=== PATIENT | male | born 1955 | race Caucasian/White ===

== ENCOUNTER 2024-12-16 13:48 | Outpatient (CLI) | payer MEDICARE, SELFPAY ==
--- NOTE | ~2024-12-16 | PE_ITS ---
EXAMINATION: PET_PETPSMAST_PT DATE: 12/16/2024 15:56 INDICATION: Prostate cancer. TECHNIQUE: 4.821 mCi of Ga-68 gozetotide was administered intravenously. Low dose computed tomography (CT) images were acquired from the base of the brain to the proximal thighs for attenuation correcti on and anatomic localization. Automated exposure control was employed. Dose-length product (DLP) was 1175 mGy-cm. Positron emission tomography (PET) images were acquired in the same distribution. COMPARISON: None FINDINGS: Head/neck: There is a 2.5 x 1.4 cm left subclavicular node with increased activity. Chest: The lungs demonstrate mild atelectasis. Calcified left lung nodules and calcified left hilar l ymph nodes are consistent with old granulomatous disease. No pleural effusion. Cardiomegaly is noted. There are coronary artery calcifications. No pericardial effusion. There is a mildly enlarged paraes ophageal node with increased activity. Abdomen/pelvis/proximal thighs: The liver is normal. There is a gallstone in the gallbladder, which i s contracted. Calcifications in the spleen are consistent with old granulomatous disease. The pancrea s and adrenal glands are normal. There are cysts in the kidneys measuring up to 4.0 cm on the left. T here is a 1.6 cm mass of right kidney. There are 2 stones in right kidney with the larger measuring 8 mm. The prostate is mildly enlarged with maximum SUV of 3.2. There is diffuse bladder wall thickenin g, likely secondary to chronic outlet obstruction. There is diverticulosis of the colon without evide nce of diverticulitis. There are changes of appendectomy. There is increased activity in left interna l and external iliac nodes, bilateral common iliac nodes, and aortocaval, left para-aortic, and right retrocrural nodes, some of which are enlarged. There is no osseous metastatic disease. IMPRESSION: 1. Lymphadenopathy in the pelvis, abdomen, and chest including left supraclavicular lymphadenopathy w ith increased activity, consistent with metastatic disease. 2. 1.6 cm right kidney mass, which may be a hemorrhagic cyst or renal cell carcinoma. Abdomen CT with out and with contrast is recommended. Reviewed, dictated and finalized at location A. CTOR EDUCATION IMPRESSION: 1. Lymphadenopathy in the pelvis, abdomen, and chest including left supraclavic ular lymphadenopathy with increased activity, consistent with metastatic diseas e. 2. 1.6 cm right kidney mass, which may be a hemorrhagic cyst or renal cell carc inoma. Abdomen CT without and with contrast is recommended.
--- OUTSIDE RECORDS SUMMARY | 2024-12-16 13:53 | XMS_ITS | Encounter Summary ---
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 Gender Identity Not on file Sexual Orientation Not on file documented as of this encounter Plan of Treatment Not on file documented as of this encounter Visit Diagnoses Not on filedocumented in this encounter Additional Health Concerns Infection Onset Date Last Indicated Resolved Time COVID-19 Confirmed 08/08/2020 08/08/2020 0 12:35 AM COMPOUNDER COVID-19 Rule Out 08/08/2020 08/08/2020 08/08/2020 7:41 PM CDT COVID-19 Rule Out 07/24/2023 07/24/2023 07/24/2023 7:22 PM CDT documented as of this encounter Care Teams Truck Caterer Relationship Specialty Start Date End Date None, Provider, PCP - General 07/05/20 03/18/22 Smith Maldonado MD PCP - General FAMILY PRACTICE 03/19/22 documented as of this encounter
--- OUTSIDE RECORDS SUMMARY | 2024-12-16 13:53 | XMS_ITS | Encounter Summary ---
Author Organization [facility] Address [facility] [place] [address] Care Team Providers Care Director Risk Name Role Phone Smith Maldonado MD Primary Care Provider Encounter Details Date Type Department Care Team (Late st Contact Info) Description 08/04/2023 Hospital Follow-up Call [facility] [address] [place] [address] Tamica Balbuena RN Social History Tobacco Use Types Packs/Day Years Used Date Smoking Tobacco: Never Smokeless Tobacco: Former Alcohol Use Standard Drinks/Week Comments Yes 0 (1 standard drink = 0.6 oz pur e alcohol) occassional Humiliation, Afraid, Rape, and Kick questionnair e Answer Date Recorded Within the last year, have y ou been afraid of your partner or ex-partner? No 07/25/2023 Within the last year, have y ou been humiliated or emotionally abused in other ways by your partner or ex-partner? No Within the last year, have y ou been kicked, hit, slapped, or otherwise physically hurt by your partner or ex-partner? No 07/25/2023 Within the last year, have y ou been raped or forced to have any kind of sexual activity by your partner or ex-partner? No 07/25/2023 Overall Financial Resource Strain (CARDIA) Answe r Date Recorded How hard is it for you to pa y for the very basics like food, housing, medical care, and heating? Not hard at all 07/25/2023 Hunger Vital Sign Answer Date Recorded Within the past 12 months, y ou worried that your food would run out before you got the money to buy more. Never true 07/25/20 23 Within the past 12 months, t he food you bought just didn't last and you didn't have money to get more. Never true 07/25/2023 PRAPARE - Transportation Answer Date Re corded In the past 12 months, has l ack of transportation kept you from medical appointments or from getting medications? No 07/05 In the past 12 months, has l ack of transportation kept you from meetings, work, or from getting things needed for daily living? No 07/25/2023 Housing Stability Vital Sign Answer Danny e Recorded In the last 12 months, was t here a time when you were not able to pay the mortgage or rent on time? No 07/25/2023 In the last 12 months, how many places have you lived? 1 07/25/2023 In the last 12 months, was t here a time when you did not have a steady place to sleep or slept in a long term (including now)? 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 Answer Date of Assessment Author Status No 07/25/2023 1:33 AM Bing Padgett RN Active * Do you have serious difficulty walking or climbing stairs? Answer Date of Assessment Author Status No 07/25/2023 1:33 AM Bing Padgett RN Active * Do you have difficulty dressing or bathing? Answer Date of Assessment Author Status No 07/25/2023 1:33 AM Bing Padgett RN Active * Because of a physical, mental, or emotional condition, do you have difficulty doing errands alone such as visiting a doctor's office or shopping? Answer Date of Assessment Author Status No 07/25/2023 1:33 AM Bing Padgett RN Active documented as of this encounter Mental Status * Because of a physical, mental, or emotional condition, do you have serious difficulty concentrating, remembering, or making decisions? Answer Entry Date Author Status No 07/25/2023 1:33 AM Bing Padgett RN Active documented in this encounter Plan of Treatment Not on file documented as of this encounter Goals Goal Patient Goal Type Associated Problems Recent Progress Patient-Stated? Author Patient will return to prior living situation and remain independent in ADLs upon discharge from hospital Lifestyle No Brittany Cheng RN documented as of this encounter Visit Diagnoses Not on filedocumented in this encounter Care Teams Director Risk Relationship Specialty Start Date End Date Smith Maldonado MD PCP - General FAMILY PRACTICE 03/19/22 documented as of this encounter
--- OUTSIDE RECORDS SUMMARY | 2024-12-16 13:53 | XMS_ITS | Clinical Summary ---
Author Organization [facility] Address [address] [place] [id number] Care Team Providers Care Scalp Treatment Specialist Name Role Phone Smith Maldonado MD Primary Care Provider [phone] Allergies Active Allergy Reactions Criticality Noted Date Comments Penicillins Unknown 08/02/2020 Medications aspirin 81 MG chewable tablet Chew 1 tablet (81 mg total) by mouth daily. Active multi vitamin/minerals tablet Take 1 tablet by mouth daily. Active finasteride (PROSCAR) 5 MG tablet Take 1 tablet (5 mg total) by mouth daily. Active carvedilol (COREG) 6.25 MG tablet Take 1 tablet (6.25 mg total) by mouth 2 (two) times daily. 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 CAD (coronary artery disease) 08/18/2023 NSTEMI (non-ST elevated myoc ardial infarction) ([facility]) 07/25/2023 Assessment & Plan (07/31/2023 1:07 PM CDT): Severe complex coronary artery disease with total occlusion of ostial LAD, subtotal occlusion of ostial circumflex coronary. Has moderate stenosis at the origin of PL branch of right coronary. Patient is postoperative day 1 with BROOKS to LAD, SVG to diagonal, SVG to marginal and SVG to PDA. Making excellent recovery. Continue postoperative care. Back on aspirin and beta-mitzi. Since she had NSTEMI, would have gone on combination of aspirin Plavix but he needs anticoagulation for PAF therefore plan on going on aspirin and Eliquis. PAF (paroxysmal atrial fibrillation) ([facility]) 07/25/2023 Assessment & Plan (07/31/2023 1:08 PM CDT): Sinus rhythm now. Patient now s/p Maze procedure and ligation of left atrial appendage. Plan to keep him on anticoagulation for [address] to start him on Eliquis at the time of discharge. Continue aspirin. Encounters Date Type Department Care Team Description 10/15/2024 8:38 AM DISBURSEMENT CLERK - 10/15/2024 11:59 PM [facility] [place] [address] Enma Keller III, MD Discharge Disposition: Home or Self Care (Routine Discharge) 10/15/2024 [place] [address] Enma Keller III, MD 10/15/2024 Travel from Last 3 Months Family History Medical History Relation Comments Heart Disease Father Heart Disease Mother Relation Status Comments Father Mother Social History Tobacco Use Types Packs/Day Years Used Date Smoking Tobacco: Never Smokeless Tobacco: Former Tobacco Cessation:Counseling Given: Not Answered Alcohol Use Standard Drinks/Week Comments Yes 3.3 (1 standard drink = 0.6 oz p ure alcohol) occassional Humiliation, Afraid, Rape, and Kick [...] place to sleep or slept in a long-term (including now)? 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 DISBURSEMENT CLERK Gender Identity Not on file Sexual Orientation Not on file Last Filed Vital Signs Vital Sign Reading Time Taken Comments Blood Pressure 184/97 06/03/2024 1:20 PM CDT Pulse 70 06/03/2024 1:20 PM CDT Temperature 36.9 C (98.4 F) 06/03/2024 1:20 PM CDT Respiratory Rate 16 06/03/2024 1:20 PM CDT Oxygen Saturation 99% 06/03/2024 1:20 PM CDT Inhaled Oxygen Concentration - - Weight 85.3 kg (188 lb) 06/03/2024 1:20 PM CDT Height 175.3 cm (5' 9 ) 06/03/2024 1:20 PM CDT Body Mass Index 27.76 06/03/2024 1:20 PM CDT Plan of Treatment Health Maintenance Due Date Last Done Comments ASCVD Statin 1955 Pneumococcal Vaccine: 65+ Years (1 of 2 - PCV) 1959 Hepatitis C 1971 DTaP, Tdap and Td Vaccines ( 1 - Tdap) 1972 RSV Immunization or 60+ Years (1 - Risk 60-74 years 1-dose series) 2013 Zoster Vaccines (2 of 3) 11/02/2013 09/07/2013 Annual Medicare Wellness Visit 2018 COVID-19 Vaccine (1 - 2023-2 5 season) 2024 ASCVD LDL 07/26/2024 07/26/2023, 07/25/2023 Influenza Adult (#1) 2024 09/16/2019 Colorectal Cancer Screening Colonoscopy (10 Years) 10/06/2030 10/06/2020, 10/06/2020 Meningococcal B Vaccine Aged Out No l onger eligible based on patient's age to complete this topic Meningococcal Vaccine Aged Out No krystyna bhavesh eligible based on patient's age to complete this topic RSV Immunizations Under 20 Months Aged Out No longer eligible b ased on patient's age to complete this topic Goals Goal Patient Goal Type Associated Problems Recent Progress Patient-Stated? Author Patient will return to prior living situation and remain independent in ADLs upon discharge from hospital Lifestyle No Brittany Cheng ruby developer Procedure Name Priority Date/Time Associated Diagnosis Comments PROSTATE SPECIFIC ANTIGEN,TOTAL Routine 10/15/2024 8:45 AM DISBURSEMENT CLERK Elevated prostate specific antigen (PSA) LIPID PANEL Routine 07/26/2023 12:09 PM CDT COLONOSCOPY 10/06/2020 9:44 AM DISBURSEMENT CLERK from Last 3 Months or Most Recently Relevant to Health Maintenance Results * (ABNORMAL) PROSTATE SPECIFIC ANTIGEN, DIAG (10/15/2024 8:45 AM DISBURSEMENT CLERK) PSA 13.89(H) <4.00 NG/ML 10/15/2024 9:29 AM DISBURSEMENT CLERK [facility] Comment: ASSAY PERFORMED BY ENZYME IMMUNOASSAY METHODOLOGY USING SIEMENS DIMENSION REAGENT. PATIENT RESULTS DETERMINED BY ASSAYS FROM DIFFERENT MANUFACTURERS AND/OR BY DIFFERENT METHODS MAY NOT BE COMPARABLE. 10/15/2024 8:45 AM DISBURSEMENT CLERK Enma Keller III, MD LABORATORY Final Re sult [facility] [address] [place] [address], * LIPID PANEL (07/26/2023 12:09 PM CDT) CHOLESTEROL 128 MG/DL 07/26/2023 12:43 PM CDT [facility] Comment:DESIRABLE: <200 TRIGLYCERIDES 68 MG/DL 07/26/2023 12:43 PM CDT [facility] Comment:<150 NORMAL HDL 60 >39 MG/DL 07/26/2023 12:43 PM CDT [facility] LDL (CALCULATED) 54 MG/DL 07/26/20 12:43 PM CDT [facility] Comment:<100 OPTIMAL VLDL CALCULATION 14 MG/DL 07/26/20 12:43 PM CDT [facility] Comment:REFERENCE RANGE NOT ESTABLISHED CHOL/HDL RATIO 2.1 07/26/2023 12:43 PM CDT [facility] Comment:REFERENCE RANGE NOT ESTABLISHED LDL/HDL 0.9 07/26/2023 12:43 PM CDT [facility] Comment:REFERENCE RANGE NOT ESTABLISHED NON HDL CHOLESTEROL 68 MG/DL 07/26/2023 12:43 PM CDT [facility] Comment:REFERENCE RANGE NOT ESTABLISHED 07/26/2023 12:0 9 PM CDT Pato Sheehan MD LABORATORY Final Resul t [facility] [address] [place] [address], [id number] * COLONOSCOPY (10/06/2020 9:44 AM DISBURSEMENT CLERK) Howard León MD GI PROCEDURE ORDERABLES Final Result from Last 3 Months or Most Recently Relevant to Health Maintenance Insurance [place] [id number] [place] [id number] MEDICARE Advance Directives * Full Code (Latest Code Status on File) Date Activated Date Inactivated Comments 07/28/2023 1:40 PM 08/02/2023 3:15 PM * Full Code Date Activated Date Inactivated Comments 07/25/2023 1:22 AM 07/28/2023 1:40 PM Care Teams Scalp Treatment Specialist Relationship Specialty Start Date End Date Smith Maldonado MD PCP - General FAMILY PRACTICE 03/19/22
== END 2024-12-16 13:49 | disposition home or self-care (01) ==
PROVIDERS: PCP Family Medicine; Visit Provider Urology
DX: C61 Malignant neoplasm of prostate (principal); N28.89 Other specified disorders of kidney and ureter
CPT/HCPCS: 78815; A9596

== ENCOUNTER 2025-01-03 12:19 | Outpatient (CLI) | payer MEDICARE, SELFPAY | END 2025-01-03 12:20 | disposition home or self-care (01) | LOC: CHSIMG 12:20 | PROVIDERS: PCP Family Medicine; Visit Provider Urology | DX: M85.89 Other specified disorders of bone density and structure, multiple sites (principal) | CPT/HCPCS: 77080 ==